=== PATIENT | male | born 1950 | race Caucasian/White ===

== ENCOUNTER 2019-07-02 22:30 | Observation (INO) | payer MEDICARE, SELFPAY ==
[2019-07-02 22:30] VITALS: BP 160/93; PULSE 71; RESP 14; TEMP 36.9; O2SAT 96; BMI 25.9
[2019-07-02 22:50] VITALS: O2SAT 95
--- NOTE | 2019-07-02 22:50 | EKG12_ITS ---
Test Reason : CP Blood Pressure : / mmHG Vent. Rate : 070 BPM Atrial Rate : 070 BPM P-R Int : 172 ms QRS Dur : 076 ms QT Int : 378 ms P-R-T Axes : 047 005 027 degrees QTc Int : 408 ms Normal sinus rhythm Normal ECG Confirmed by GIGI GALICIA, MARTÍN ([id number]), web content editor ELIZABETH SANCHEZ ([id number]) on 07/06/2019 9:47:58 AM Referred By: Tristin Peña Confirmed By:SUDHEER YU MD
--- NOTE | 2019-07-02 22:50 | RAD_ITS ---
STUDY: X-RAY CHEST REASON FOR EXAM: Male, 68 years old. Sternal chest pain TECHNIQUE: Frontal and lateral views of the chest. COMPARISON: None. FINDINGS: The lungs are clear and expanded. There is no demonstrated pleural abnormality. Normal size heart. Normal mediastinum and ok. Normal visualized pulmonary arteries. Normal visualized aortic arch and descending thoracic aorta. There are diffuse degenerative changes of the visualized thoracic spine. There is degenerative osteoarthritis of the bilateral shoulders. There is no demonstrated abnormality of the visualized soft tissue structures of the upper abdomen. RAD/Chest PA and Lateral IMPRESSION: Degenerative changes, as described above. No demonstrated acute cardiopulmonary process. Electronically Signed: Jean Hollis, at 23:13 EDT Tel , Service support ,
--- NOTE | 2019-07-02 22:51 | ED.DCSUM_ITS ---
History of Present Illness Chief Complaint: Chest Pain Informant: Patient Narrative: Presents with 3 days of left-sided and central chest tightness. It is a constant sensation. Is worse when he does exertion like walking up steps. When he does exertion in a radiate to his jaw and sometimes his left bicep. He is never had this before. Denies any cardiac history. No previous stress test or heart cath. Denies any pulmonary embolism or dissection risk factors. Positive history of high cholesterol otherwise no cardiac risk factors. Current severity is mild per patient. He did take a Tylenol earlier today. Moderate severity when he goes up steps. Denies nausea or vomiting fevers or chills or respiratory symptoms Past Medical History - Allergies and Home Meds Allergies/Adverse Reactions: Allergies No Known Allergies Allergy (Verified 07/02/19 22:33) Primary Care Physician: Aleks Fontaine MD [Primary Care Provider] - Prior records reviewed: Yes Past Medical History: - - Cholesterol, reflux Surgical History: - - Previous knee surgery Lives: With Family Smoking Status: Never smoker Alcohol: None Drugs: None Review of Systems General: Denies: Chills, Fever, Sweats Eyes: Denies: Visual changes - bilaterally, Diplopia ENT: Denies: Rhinorrhea, Sore throat Cardiovascular: Reports: Chest pain. Denies: Palpitations Respiratory: Denies: Dyspnea, Cough, Dyspnea on exertion Gastrointestinal: Denies: Abdominal pain, Nausea, Vomiting, Diarrhea, Melena, Hematochezia Genitourinary: Denies: Dysuria, Hematuria, Frequency Musculoskeletal: Denies: Back pain, Extremity Pain Skin: Denies: Rash, Wounds Neurological: Denies: Headache, Weakness, Numbness Physical Exam Vital Signs/Narrative: Vital Signs Temp Pulse Resp BP Pulse Ox 07/02/19 22:30 98.5 F 71 14 160/93 H 96 General: Well nourished, Well developed, No Acute Distress Head: Normocephalic, Atraumatic Eyes: Perrl, EOMI ENT: Moist mucous membranes, No rhinorrhea Neck: Supple, Nontender Cardiovascular: Regular rate, Regular rhythm, No murmurs Respiratory: No distress, CTA bilaterally, Chest nontender Abdomen: Soft, Nontender, Nondistended, Normal bowel sounds Back: Nontender, Normal Inspection Extremities: Nontender, No edema Skin: Normal color, No rash Neurological: Alert, Oriented x3, Cranial nerves II-XII grossly intact, Normal Strength, Normal Sensation Psychological: Normal affect, Normal Mood Diagnostic/Tx/Re-eval - Medical Decision Making EKG obtained shows normal sinus rhythm at a rate of 70. T wave inversion inferi mannie 3. Otherwise no ischemic changes. Patient given sublingual nitroglycerin series as well as an oral aspirin. Lab work obtained as well as chest x-ray. Lab work and chest x-ray are unremarkable. BUN slightly elevated. Troponin negative. Chest x-ray shows no acute disease two-view in the emergency department read by myself. CBC shows no major abnormalities. Patient felt pain-free after nitroglycerin. At this time I feel he should be admitted. His heart score is 6. This puts him in a high risk category. He is willing to stay for further cardiac evaluation. I do not feel he needs a CT Angio of his chest. Have a low suspicion for pulmonary embolism or aortic dissection. He is never had a stress test or heart cath. I feel he may need inpatient evaluation to rule out coronary artery stenosis. Patient willing to stay. ED Disposition - Plan for ED Patient: Disposition: Home or Assisted Living Diagnosis: Chest pain
[2019-07-02] MEDS: Aspirin 81 MG TAB.CHEW 324 MG PO (23:07)
[2019-07-02 23:08] LABS: Absolute Neutrophil Count 3.5 X10^3/uL (2.0-7.7); Basophil# 0.03 X10^3/uL; Basophil% 0.5 % (0-1); Eosinophil# 0.13 X10^3/uL; Eosinophils% 2.2 % (0-5); Hematocrit 44.2 % (40-54); Hemoglobin 14.8 g/dL (13.0-16.5); Lymphocyte % 24.1 % (19-41); Mean Corp Hgb Conc 33.5 g/dL (32-36); Mean Corpuscular Hgb 29.8 pg (27.0-32.0); Mean Corpuscular Volume 88.9 fL (80-94); Mean Platelet Vol. 9.2 fl (6.2-12.0); Monocyte# 0.75 X10^3/uL; Monocyte% 12.9 % (0-10); NRBC Flagged by Analyzer 0 % (0-5); Neutrophil # 3.49 X10^3/uL (2.7-7.7); Neutrophil % 60.1 % (47-70); Platelet Count 157 K/mm3 (150-450); Red Blood Count 4.97 M/mm3 (4.6-6.2); White Blood Count 5.8 K/mm3 (4.4-11.0)
[2019-07-02 23:09] VITALS: BP 144/90; PULSE 70
[2019-07-02] MEDS: Nitroglycerin SL (ED/IMG/CATH) 0.4 MG TABLET SUBLINGUAL ×3 (23:09→23:22)
[2019-07-02 23:14] VITALS: BP 129/79; PULSE 70
[2019-07-02 23:17] LABS: Anion Gap 6 (5-15); BUN 20 mg/dL (7-18); BUN/Creat Ratio 17.5 RATIO (10-20); Calcium,Total 8.5 mg/dL (8.5-10.1); Chloride 104 mmol/L (98-107); Creatinine, Serum 1.14 mg/dL (0.70-1.30); EST Glomerular Filtration Rate 68 mL/min (>60); Est Glom Filt Rate - Afr Amer 83 mL/min (>60); Estimated Creatinine Clearance 65.81 ml/min; Glucose 103 mg/dL (74-106); Potassium 3.9 mmol/L (3.5-5.1); Sodium Level 139 mmol/L (136-145)
[2019-07-02 23:22] VITALS: BP 125/75; PULSE 69
[2019-07-02 23:37] VITALS: BP 119/84; PULSE 67; RESP 17; O2SAT 95
--- NOTE | 2019-07-02 23:50 | PCM.HP.STD ---
Problem List (1) Chest pain Status: Acute (2) GERD (gastroesophageal reflux disease) Status: Chronic History of Present Illness Date of Admission: 07/03/19 Chief Complaint: Chest pain for 4 days The patient is a 68 year old M with history of GERD came to ER with chest pain, midsternal felt heavy with radiation to jaw started 4 days ago. Patient had a heart manual work on Thursday and then got chest pain while exertion on Thursday. Usually, chest pain is brought by exertion, more worse with exertion and relieved with rest although it happened while at rest too. Associated mild shortness of breath, patient said he was not able to breathe before. Patient had 324 mg aspirin in the ER with nitroglycerin sublingual and he felt chest pain shortness of breath has resolved. In ED, EKG shows normal sinus rhythm at 70 bpm with T inversion in lead III [. No ST-T significant change to suggest ischemia. Chest x-ray reported unremarkable. Basic blood work in ED shows BUN 20 otherwise normal. First troponin negative.] Past Medical History Past Medical History (Chronic Problems): Chronic Problems GERD (gastroesophageal reflux disease) (Chronic) Allergies No Known Allergies Allergy (Verified 07/02/19 22:33) Home Medications: Ambulatory Orders Medication Instructions Recorded Omeprazole 40 mg PO DAILY 01/24/17 Surgical History: - - Previous knee surgery Lives: With Family Smoking Status: Never smoker Alcohol: None Drugs: None - *Family History Paternal History Items: - - 3 uncles had [place]/coronary artery disease in old age 1 of them in 80s Review of Systems Constitutional: Denies: Chills, Fever, Weight Change HEENT: Denies: Head Aches, Sinus Congestion, Sinus Drainage Cardiovascular: Reports: Chest Pain, Chest Pressure. Denies: Palpitations Respiratory: Reports: Shortness of Breath, Shortness of breath upon exertion. Denies: Cough, Shortness of breath at rest, Sputum production Gastrointestinal: Denies: Abdominal Pain, Nausea, Vomiting Genitourinary: Denies: Dysuria, Frequency, Hesitancy, Urgency Musculoskeletal: Denies: Joint Pain, Joint Tenderness Skin: Denies: Rash, Wounds Neurological: Denies: Numbness, Tingling, Focal weakness Psychiatric: Denies: Anxiety, Depression, Homicidal Ideations, Suicidal Ideations Hematologic/ Lymphatic: Denies: Easy Bruising, Easy Bleeding VTE Information - Inpt Only VTE Present on Admission: No VTE Mechan Device Prophylaxis: None VTE Pharm Prophylaxis ordered?: Yes Patient Problems: Active and Suspected Problems Chest pain (Acute) - Physical Exam General: Alert, Oriented x3, Cooperative HEENT: Atraumatic, PERRLA, EOMI, Normocephalic Neck: Supple, No JVD, Negative Carotid Bruits Lungs: Clear to auscultation, Normal air movement, No rhonchi, No wheeze, No rales Cardiovascular: Regular rate, Regular Rhythm, Normal S1, Normal S2, No murmurs Abdomen: Bowel Sounds Present, Soft, Non Tender, Non-Distended Extremities: No edema, Capillary Refill Less than 3 Seconds Skin: No rashes, No breakdown Musculoskeletal: No Tenderness to Palpation of Joints or Extremities Neurological: Cranial nerves II-XII grossly intact, Deep Tendon Reflexes 2+/4 and Symmetrical, Neuro grossly intact, Motor Exam 5/5 strength throughout Psych/Mental Status: Normal Affect, Appropriate Vital Signs Temp Pulse Resp BP Pulse Ox 98.5 F 67 17 119/84 H 95 07/02/19 22:30 07/02/19 23:37 07/02/19 23:37 07/02/19 23:37 07/02/19 23:37 Oxygen Delivery Method Room Air Weight: 181 lb 3.52 oz Body Mass Index (BMI) 25.9 Laboratory Tests Past 24 Hrs 07/02/19 07/02/19 22:35 22:35 WBC 5.8 RBC 4.97 Hgb 14.8 Hct 44.2 MCV 88.9 MCH 29.8 MCHC 33.5 RDW Std Deviation 42.0 RDW Coeff of Inkole 13.0 Plt Count 157 MPV 9.2 Immature Gran % (Auto) 0.200 Neut % (Auto) 60.1 Lymph % (Auto) 24.1 [place] % (Auto) 12.9 H Eos % (Auto) 2.2 Baso % (Auto) 0.5 Absolute Neuts (auto) 3.5 Absolute Lymphs (auto) 1.40 Nucleated RBC % 0 Sodium 139 Potassium 3.9 Chloride 104 Carbon Dioxide 29.0 Anion Gap 6 BUN 20 H Creatinine 1.14 Estim Creat Clear Calc 65.81 Est GFR (MDRD) Af Amer 83 Est GFR (MDRD) Non-Af 68 BUN/Creatinine Ratio 17.5 Glucose 103 Calcium 8.5 Troponin I < 0.015 Assessment/Plan All Active Problems Chest pain (Acute) The patient is a 68 year old M with history of GERD came to ER with chest pain, midsternal felt heavy with radiation to jaw started 4 days ago. Patient had a heart manual work on Thursday and then got chest pain while exertion on Thursday. In ED, EKG shows normal sinus rhythm at 70 bpm with T inversion in lead III. No ST-T significant change to suggest ischemia. Chest x-ray reported unremarkable. Basic blood work in ED shows BUN 20 otherwise normal. First troponin negative.] 1. Chest pain possible unstable angina: Patient is being admitted in PCU. Serial troponin enzymes. Repeat EKG after 4 hours. Fasting profile tomorrow a.m. Patient was advised treadmill nuclear stress test if troponins are negative but that would be done on Thursday but he does not want to stay until then but getting done as an outpatient on Thursday/Thursday. Patient is going to [place] on Thursday. 2. GERD: On omeprazole daily. Mild prerenal azotemia possible mild dehydration. On IV fluid normal saline. 3. Patient had history of ulcerative colitis in late teens/20s because it resolved with medication in the past. Currently, he is not on any ulcerative colitis medication. DVT prophylaxis: Moderate risk on Lovenox 40 mg subcu daily. Code Visit OBSV E&M: 65819 Initial observation care L3
[2019-07-03] VITALS (13 sets, daily range): BP systolic 119–155; BP diastolic 78–102; PULSE 48–69; RESP 14–18; TEMP 36.5–37.3; O2SAT 96–100; BMI 25.2
--- NOTE | 2019-07-03 00:07 | EKG12_ITS ---
Test Reason : ADMIT Blood Pressure : / mmHG Vent. Rate : 065 BPM Atrial Rate : 065 BPM P-R Int : 172 ms QRS Dur : 072 ms QT Int : 404 ms P-R-T Axes : 048 003 028 degrees QTc Int : 420 ms Normal sinus rhythm Normal ECG When compared with ECG of 02-JUL-2019 22:38, MANUAL COMPARISON REQUIRED, DATA IS UNCONFIRMED Confirmed by MARRY MCFARLANE ([id number]), assistant editor ELIZABETH SANCHEZ ([id number]) on 07/06/2019 10:46:00 AM Referred By: Tristin Peña Confirmed By:MARRY MCFARLANE
[2019-07-03] MEDS: 0.9% Normal Saline 1,000 ML 100 ML IV (00:42)
--- NOTE | 2019-07-03 04:26 | EKG12_ITS ---
Test Reason : CP Blood Pressure : / mmHG Vent. Rate : 062 BPM Atrial Rate : 062 BPM P-R Int : 198 ms QRS Dur : 068 ms QT Int : 414 ms P-R-T Axes : 065 016 030 degrees QTc Int : 420 ms Normal sinus rhythm Septal infarct , age undetermined Abnormal ECG When compared with ECG of 03-JUL-2019 00:12, MANUAL COMPARISON REQUIRED, DATA IS UNCONFIRMED Confirmed by MARRY MCFARLANE ([id number]), slot editor ELIZABETH SANCHEZ ([id number]) on 07/06/2019 10:46:10 AM Referred By: Tristin Peña Confirmed By:MARRY MCFARLANE
[2019-07-03] MEDS: Nitroglycerin (INPATIENT USE) 0.4 MG TAB.SUBL SUBLINGUAL ×2 (04:47→04:55)
[2019-07-03] MEDS: Acetaminophen 325 MG Tablet 650 MG PO ×3 (05:06→18:36)
[2019-07-03 05:34] LABS: Cholesterol 163 mg/dL (200); High Density Lipoprotein 31 mg/dL; Thyroid Stim Hormone (TSH) 2.19 uIU/mL (0.358-3.74); Triglycerides 130 mg/dL; Very Low Density Lipoprotein 26 mg/dL (5-40)
--- NOTE | 2019-07-03 11:18 | PN_ITS ---
Patient Problems: Active and Suspected Problems Chest pain (Acute) Subjective: Patient seen and examined. Reports mild left-sided chest pressure during ambulation in the hallway earlier today. Continues to have mild left-sided jaw discomfort. Denies shortness of breath or other associated symptoms. - Physical Exam General: Alert, Oriented x3, Cooperative HEENT: Atraumatic, PERRLA, EOMI, Normocephalic Neck: Supple, No JVD, Negative Carotid Bruits Lungs: Clear to auscultation, Normal air movement Cardiovascular: Regular rate, Regular Rhythm, Normal S1, Normal S2, No murmurs Abdomen: Bowel Sounds Present, Soft, Non Tender, Non-Distended Extremities: No clubbing, No cyanosis, No edema, Capillary Refill Less than 3 Seconds Skin: No rashes, No breakdown Musculoskeletal: No Tenderness to Palpation of Joints or Extremities Neurological: Cranial nerves II-XII grossly intact, Neuro grossly intact Psych/Mental Status: Normal Affect, Appropriate Vital Signs Temp Pulse Resp BP Pulse Ox 97.8 F 56 L 16 119/79 96 07/03/19 04:36 07/03/19 06:42 07/03/19 04:36 07/03/19 05:07 07/03/19 04:36 Oxygen Delivery Method Room Air Weight: 175 lb 14.862 oz Body Mass Index (BMI) 25.2 Intake and Output for Last 24 Hours 07/01/19 07/02/19 07/03/19 23:59 23:59 23:59 Intake Total 988.33 / 988.33 Balance 988.33 / 988.33 Laboratory Tests Past 24 Hrs 07/02/19 07/02/19 07/02/19 22:35 22:35 22:35 WBC 5.8 RBC 4.97 Hgb 14.8 Hct 44.2 MCV 88.9 MCH 29.8 MCHC 33.5 RDW Std Deviation 42.0 RDW Coeff of Nikole 13.0 Plt Count 157 MPV 9.2 Immature Gran % (Auto) 0.200 Neut % (Auto) 60.1 Lymph % (Auto) 24.1 [place] % (Auto) 12.9 H Eos % (Auto) 2.2 Baso % (Auto) 0.5 Absolute Neuts (auto) 3.5 Absolute Lymphs (auto) 1.40 Nucleated RBC % 0 Sodium 139 Potassium 3.9 Chloride 104 Carbon Dioxide 29.0 Anion Gap 6 BUN 20 H Creatinine 1.14 Estim Creat Clear Calc 65.81 Est GFR (MDRD) Af Amer 83 Est GFR (MDRD) Non-Af 68 BUN/Creatinine Ratio 17.5 Glucose 103 Calcium 8.5 Magnesium 2.0 Troponin I < 0.015 Triglycerides Cholesterol LDL Cholesterol VLDL Cholesterol HDL Cholesterol TSH 07/03/19 07/03/19 01:29 04:25 WBC RBC Hgb Hct MCV MCH MCHC RDW Std Deviation RDW Coeff of Nikole Plt Count MPV Immature Gran % (Auto) Neut % (Auto) Lymph % (Auto) [place] % (Auto) Eos % (Auto) Baso % (Auto) Absolute Neuts (auto) Absolute Lymphs (auto) Nucleated RBC % Sodium Potassium Chloride Carbon Dioxide Anion Gap BUN Creatinine Estim Creat Clear Calc Est GFR (MDRD) Af Amer Est GFR (MDRD) Non-Af BUN/Creatinine Ratio Glucose Calcium Magnesium Troponin I < 0.015 < 0.015 Triglycerides 130 Cholesterol 163 LDL Cholesterol 106 VLDL Cholesterol 26 HDL Cholesterol 31 L TSH 2.19 Medical Necessity - Tobacco Use Smoking Status: Never smoker Assessment/Plan All Active Problems Chest pain (Acute) 1. Chest pain, rule out ACS-troponin negative. EKG without evidence of acute ischemia, T wave inversion in lead III. Stress test ordered for a.m. continue aspirin, statin. PRN nitro. 2. GERD-continue home omeprazole regimen. 3. Remote history of ulcerative colitis- not on regimen. DVT prophylaxis-Lovenox subcu This patient was seen by CHETNA Cotto under the supervision of Dr. Clarke.
[2019-07-03] MEDS: Ibuprofen 600 MG Tablet PO (14:06)
--- NOTE | 2019-07-03 16:06 | EKG12_ITS ---
Test Reason : Blood Pressure : / mmHG Vent. Rate : 065 BPM Atrial Rate : 065 BPM P-R Int : 180 ms QRS Dur : 076 ms QT Int : 396 ms P-R-T Axes : 058 014 034 degrees QTc Int : 411 ms Normal sinus rhythm Normal ECG When compared with ECG of 03-JUL-2019 04:49, MANUAL COMPARISON REQUIRED, DATA IS UNCONFIRMED Confirmed by MARRY MCFARLANE ([id number]), book or script editor ELIZABETH SANCHEZ ([id number]) on 07/06/2019 10:46:39 AM Referred By: Tristin Peña Confirmed By:MARRY MCFARLANE
[2019-07-03] MEDS: Aspirin E.C. 81 MG Tablet PO (17:21)
[2019-07-04 02:50] VITALS: BP 155/103; PULSE 72; RESP 13; TEMP 37.6; O2SAT 96
[2019-07-04] MEDS: Acetaminophen 325 MG Tablet 650 MG PO (03:02)
[2019-07-04 03:04] VITALS: PULSE 78
--- NOTE | 2019-07-04 05:55 | EKG12_ITS ---
Test Reason : AM EKG Blood Pressure : / mmHG Vent. Rate : 072 BPM Atrial Rate : 072 BPM P-R Int : 178 ms QRS Dur : 076 ms QT Int : 366 ms P-R-T Axes : 056 010 034 degrees QTc Int : 400 ms Normal sinus rhythm Low voltage QRS (limb leads) Confirmed by ANGEL GALICIA, ALLYSON ([id number]), photographic editor ELIZABETH SANCHEZ ([id number]) on 07/06/2019 11:29:44 AM Referred By: Tristin Peña Confirmed By:ALLYSON ORTIZ MD
[2019-07-04 06:24] VITALS: BP 149/101; PULSE 81; RESP 13; TEMP 37.1; O2SAT 95
[2019-07-04] MEDS: Aspirin E.C. 81 MG Tablet PO (06:30)
[2019-07-04 06:46] VITALS: PULSE 87
[2019-07-04 10:00] VITALS: BP 158/96; PULSE 79; RESP 16; TEMP 36.9; O2SAT 97
--- NOTE | 2019-07-04 10:07 | CASEMGMT ---
This RN CM to room with LAUGHLIN form at this time, explanation done-pt voices understanding, and signs LAUGHLIN form at this time. Original to chart and copy to pt at this time. Pt voices no further questions/concerns/needs at this time. Pt awaiting results of stress test at this time. SStaten SUZY SOMERS
--- NOTE | 2019-07-04 11:04 | CASEMGMT ---
Per press reader pt stating he does have both a living will and health care POA. Pt is aware that [facility] does not have a copy and he is unable to bring it in at this time. SHARIFA Mcclendon
--- NOTE | 2019-07-04 11:30 | DCINST_ITS ---
- Discharge Diagnoses Current Active Problems: Current Active and Chronic Problems Chest pain (Acute) GERD (gastroesophageal reflux disease) (Chronic) You will use the following diet at home:: No restrictions Discharge Activity: Return to Normal Activity Call your doctor if you observe: Shortness of breath, Dizziness, Fainting spells, Chest pain Allergies/Adverse Reactions: Allergies No Known Allergies Allergy (Verified 07/02/19 22:33) Medications to take at Discharge Omeprazole 20 mg PO DAILY 01/24/17 Red Yeast Rice 600 mg PO BID 07/03/19 Primary Care Physician: Eitan Martínez MD [Primary Care Provider] - Please follow up with your Primary Care Physician in: 1 Week Test Results: Test results from this visit will be discussed in further detail at your follow- up appointment, if applicable. Proposed Discharge Date: 07/04/19
--- NOTE | 2019-07-04 11:43 | PHA.DC.MR ---
Pharmacy Service has performed discharge medication reconciliation for this patient. Home Medications Omeprazole 20 mg PO DAILY 01/24/17 Red Yeast Rice 600 mg PO BID 07/03/19 The patient's discharge medication list was reviewed for discrepancies and discrepancies were resolved.
--- NOTE | 2019-07-04 13:42 | STRESSREP_ITS ---
Stress Test Report Date: 07/04/2019 Procedure: Exercise tolerance test/imaging study Indications: Chest pain Consent: Per the patient Procedure: The patient exercised on a Gino protocol for 9 minutes and 15 seconds achieving a peak heart rate of 134 bpm (87 % predicted maximal heart rate) with a peak blood pressure 212/104 mmHg and a peak MET capacity of 10.5 METs. The baseline ECG demonstrated normal sinus rhythm. The peak exercise ECG demonstrated sinus tachycardia with significant baseline artifact with no definite EKG changes of ischemia. EKG during recovery revealed no evidence of ischemia [There were no cardiac dysrhythmias pretest, during exercise, or recovery]. The functional capacity was considered excellent for age. Patient had chest pain at rest prior to starting the exercise portion of the test and the chest pain did not change with exertion. The examination was discontinued secondary to dyspnea. Impression: 1. Technically adequate (percent predicted maximal heart rate greater than 85%) exercise tolerance test 2. Stress test is negative for exercise-induced EKG changes of ischemia 3. The test test is negative for exercise-induced chest pain 4. Functional capacity is excellent for age 5. Nuclear images pending Myocardial perfusion imaging study: Technique: The patient was injected with 12 mCi of technetium 99m Cardiolite and subsequently rest SPECT Cardiolite nuclear imaging was obtained in the horizontal long, vertical long, and short axis views. The patient exercised on a Gino protocol. Please see above for details. The patient was injected with 34 mCi of technetium 99m Cardiolite and subsequently stress SPECT Cardiolite nuclear imaging was obtained in the horizontal long, vertical long, and short axis views. A gated Cardiolite study at peak stress was obtained. Interpretation: Rest and stress SPECT Cardiolite nuclear imaging status post realignment, normalization, and attenuation correction, demonstrates normal myocardial radioisotope uptake. The gated Cardiolite study demonstrates no significant regional wall motion abnormalities. The reported LVEF is 66 %. Impression: 1. There is no evidence of significant ischemia or infarction. 2. The gated Cardiolite study reports an LVEF of 66 %. This note was generated with [employer] software. It may contain incorrect words, spelling, and punctuation that were not noted in checking the note before signing.
[2019-07-04 14:00] VITALS: BP 158/98; PULSE 78; RESP 16; TEMP 36.3; O2SAT 98
--- NOTE | 2019-07-04 14:03 | PCM.DC.SUM ---
<Emma Blount - Last Filed: 07/04/19 14:12> Discharge Date and Diagnosis Date of Admission: 07/03/19 Date of Discharge: 07/04/19 - Primary Discharge Diagnosis Active and Suspected Problems 1. Atypical chest pain, ACS ruled out 2. GERD 3. Remote history of ulcerative colitis - Secondary Discharge Diagnosis Chronic Problems GERD (gastroesophageal reflux disease) (Chronic) Hospital Course and Treatment Imaging Results: Diagnostic Data Chest X-Ray 07/02/19 22:50 IMPRESSION: Degenerative changes, as described above. No demonstrated acute cardiopulmonary process. Electronically Signed: Jean Hollis, at 23:13 EDT Tel , Service support , Operations: None Procedures: Stress test Summary of Care Provided: The patient is a 68 year old M admitted 07/03/2019 due to chest pain. 1. Atypical chest pain, ACS ruled out-troponin negative. EKG without evidence of acute ischemia, T wave inversion in lead III. Patient underwent stress test which was negative for ischemia. LVEF 66%. Functional capacity excellent for age. Suspect chest pain musculoskeletal in nature. Follow-up with primary care provider in 1 week. 2. GERD-continue home omeprazole regimen. 3. Remote history of ulcerative colitis- not on regimen. General: Alert, Oriented x3, Cooperative HEENT: Atraumatic, PERRLA, EOMI, Normocephalic Neck: Supple, No JVD, Negative Carotid Bruits Lungs: Clear to auscultation, Normal air movement Cardiovascular: Regular rate, Regular Rhythm, Normal S1, Normal S2, No murmurs Abdomen: Bowel Sounds Present, Soft, Non Tender, Non-Distended Extremities: No clubbing, No cyanosis, No edema, Capillary Refill Less than 3 Seconds Skin: No rashes, No breakdown Musculoskeletal: No Tenderness to Palpation of Joints or Extremities Neurological: Cranial nerves II-XII grossly intact, Neuro grossly intact Psych/Mental Status: Normal Affect, Appropriate Patient seen and examined prior to discharge. Physical assessment as noted above. Patient is stable for discharge with follow up recommendations as noted above. This patient was seen by CHETNA Cotto under the supervision of Dr. Viveros. - Physical Exam Vital Signs Temp Pulse Resp BP Pulse Ox 98.4 F 79 16 158/96 H 97 07/04/19 10:00 07/04/19 10:00 07/04/19 10:00 07/04/19 10:00 07/04/19 10:00 Oxygen Delivery Method Room Air Weight: 175 lb 14.862 oz Body Mass Index (BMI) 25.2 Intake and Output for Last 24 Hours 07/02/19 07/03/19 07/04/19 23:59 23:59 23:59 Intake Total 8.33 / 2067.33 140 / 140 Balance 2067.33 / 2067.33 140 / 140 Discharge Diet: No Restrictions Discharge Activity: Return to Normal Activity Call your doctor if you observe: Shortness of breath, Dizziness, Fainting spells, Chest pain Home Medications: Medications to take at Discharge Omeprazole 20 mg PO DAILY 01/24/17 Red Yeast Rice 600 mg PO BID 07/03/19 Primary Care Physician: Eitan Martínez MD [Primary Care Provider] - Please follow up with your Primary Care Physician in: 1 Week Disposition: Home Minutes spent on discharge:: 35 Patient Condition:: Stable Medical Necessity - Tobacco Use Smoking Status: Never smoker Meaningful Use Info Meaningful Use Diagnoses (Choose all that apply): None applicable <Stanton Viveros E - Last Filed: 07/04/19 14:24> Discharge Date and Diagnosis - Secondary Discharge Diagnosis Chronic Problems GERD (gastroesophageal reflux disease) (Chronic) Hospital Course and Treatment Imaging Results: 07/04/19 05:55 Nuclear Stress Test - Treadmil [NM] Routine Summary of Care Provided: Hospitalist note: Discharge summary above reviewed and I concur with the above discharge and treatment plan. Patient was admitted for atypical chest pain for evaluation. He has no risk factors for CAD. His EKG revealed no acute ischemic changes. His troponin was negative x3. Chest x-ray showed no acute findings. Routine blood work was unremarkable. Lipid profile revealed total cholesterol of 163, LDL cholesterol of 106 and HDL cholesterol 31. His TSH was normal. Patient underwent nuclear stress test that showed no evidence of stress induced myocardial ischemia with preserved ejection fraction. ACS ruled out. His pain probably due to musculoskeletal pain. Patient discharged home in a stable medical condition, resumed back on his home medications, no new medications started, recommended follow-up with PCP in 1 week. - Physical Exam General: Alert, Oriented x3, Cooperative, No apparent distress. HEENT: Atraumatic, PERRLA, EOMI. Neck: Supple, No JVD, Negative Carotid Bruits, Trachea Midline, Thyroid Normal. Lungs: Clear to auscultation, Normal air movement, No rhonchi, No wheeze, No rales. Cardiovascular: Regular rate, Regular Rhythm, Normal S1, Normal S2, PMI Normal. Abdomen: Bowel Sounds Present, Soft, Non Tender, Non-Distended, No Hepato-splenomegaly. Extremities: No clubbing, No cyanosis, No edema Skin: No rashes, No breakdown Neurological: Neuro grossly intact Vital Signs are stable. This note was generated with [employer] dictation software. It may contain incorrect words, spelling, and punctuation that were not noted in checking the note before signing. - Physical Exam Vital Signs Temp Pulse Resp BP Pulse Ox 97.3 F L 78 16 158/98 H 98 07/04/19 14:00 07/04/19 14:00 07/04/19 14:00 07/04/19 14:00 07/04/19 14:00 Oxygen Delivery Method Room Air Weight: 175 lb 14.862 oz Body Mass Index (BMI) 25.2 Intake and Output for Last 24 Hours 07/02/19 07/03/19 07/04/19 23:59 23:59 23:59 Intake Total 2068.33 / 2068.33 140 / 140 Balance 2068.33 / 2068.33 140 / 140 Disposition: Home Minutes spent on discharge:: 24 Patient Condition:: Stable Meaningful Use Info Meaningful Use Diagnoses (Choose all that apply): None applicable Code Visit OBSV E&M: 19280 Observation care discharge
== END 2019-07-04 11:30 | disposition home health service (06) ==
LOC: ED 23:30 → PCU 23:56
PROVIDERS: Admitting Provider Internal Medicine; Emergency Provider Emergency Medicine; Family Provider Family Medicine; PCP Family Medicine; Referring Provider Internal Medicine; Visit Provider Hospitalist
DX: R07.89 Other chest pain (principal); K21.9 Gastro-esophageal reflux disease without esophagitis; E78.00 Pure hypercholesterolemia, unspecified; Z79.899 Other long term (current) drug therapy; R06.02 Shortness of breath; Z87.19 Personal history of other diseases of the digestive system
CPT/HCPCS: 36415; 71046; 78452; 80048; 80061; 83735; 84443; 84484; 85025; 93005; 93017; 96360; 96361; 99218; 99285; A9500; J7030; A4216; G0378